=== PATIENT | female | born 1960 ===

== ENCOUNTER 2017-02-21 11:20 | Outpatient (CLI) | payer BC | END 2017-02-21 11:21 | disposition home or self-care (01) | LOC: LAB.WCP 11:20 | PROVIDERS: ATTEND Family Medicine | DX: N39.0 Urinary tract infection, site not specified (principal) | CPT/HCPCS: 87077; 87086 ==

== ENCOUNTER 2019-05-07 08:00 | Outpatient (CLI) | payer OTHER, BC ==
--- NOTE | 2019-05-08 11:58 | XRAY Report ---
Reason: RIGHT THUMB PAIN Procedure Date: 05/07/2019 Accession Number: [id number] / [id number] Procedure: WCP - Finger(s) RT CPT Code: FULL RESULT: EXAM: RIGHT FIRST DIGIT RADIOGRAPHY EXAM DATE: 05/07/2019 02:44 PM. CLINICAL HISTORY: Right first digit pain. Crush injury 2 weeks ago. COMPARISON: None. TECHNIQUE: 3 views. FINDINGS: Bones: Only well seen on the oblique view are subtle nondisplaced lucencies involving the dorsal lateral distal first proximal phalanx as well as adjacent osteophyte complex of the base of first distal phalanx which may represent nondisplaced or partially healed fractures. Joints: Moderate joint space loss and articular osteophytes present about the first IP joint. No dislocation. Soft Tissues: Normal. No soft tissue swelling. IMPRESSION: 1. Possible subtle nondisplaced intra-articular fractures of the dorsal lateral distal first proximal phalanx and adjacent dorsal osteophyte complex of the base of first distal phalanx. 2. No dislocation. [facility]
== END 2019-05-07 23:59 | disposition home or self-care (01) ==
LOC: DI.WCP 08:00 → EDSTATUS 13:22 → DI.WCP 23:59
PROVIDERS: ATTEND Physician Assistant Medical
DX: M79.644 Pain in right finger(s) (principal)
CPT/HCPCS: 73140

== ENCOUNTER 2019-09-18 11:00 | Outpatient (CLI) | payer BC ==
[2019-09-18 18:38] LABS: BASOPHILS % (AUTO) 0.5 %; EOSINOPHILS # (AUTO) 0.1 10^3/uL (0.0-0.7); EOSINOPHILS % (AUTO) 1.8 %; LYMPHOCYTES # (AUTO) 1.7 10^3/uL (1.5-3.5); LYMPHOCYTES % (AUTO) 27.7 %; MEAN CORPUSCULAR HEMOGLOBIN 27.4 pg (27.0-31.0); MEAN CORPUSCULAR HGB CONC 31.9 g/dL (32.0-36.0); MEAN CORPUSCULAR VOLUME 86.1 fL (81.0-99.0); MEAN PLATELET VOLUME 10.6 fL (7.9-10.8); MONOCYTES # (AUTO) 0.4 10^3/uL (0.0-1.0); MONOCYTES % (AUTO) 6.4 %; NEUTROPHILS # (AUTO) 3.8 10^3/uL (1.5-6.6); NEUTROPHILS % (AUTO) 63.3 %; PLT - PLATELET COUNT 256 10^3/uL (130-450); RED BLOOD COUNT 4.74 10^6/uL (4.20-5.40); RED CELL DISTRIBUTION WIDTH 14.1 % (12.0-15.0); WHITE BLOOD COUNT 6.1 x10^3/uL (4.8-10.8)
[2019-09-18 19:08] LABS: ALBUMIN 4.6 g/dL (3.2-5.5); ALBUMIN/GLOBULIN RATIO 1.6 (1.0-2.2); ALKALINE PHOSPHATASE 61 IU/L (42-121); ALT ALANINE AMINOTRANSFERASE 21 IU/L (10-60); AST ASPARTATE AMINOTRANSFERASE 28 IU/L (10-42); BILIRUBIN,TOTAL 1.1 mg/dL (0.2-1.0); BUN - BLOOD UREA NITROGEN 17 mg/dL (6-20); CALCIUM 9.4 mg/dL (8.5-10.3); CARBON DIOXIDE - CO2 26 mmol/L (21-32); CHLORIDE 105 mmol/L (101-111); CHOL/HDL RATIO 2.3 (<4.4); CHOLESTEROL 187 mg/dL; CREATININE 0.8 mg/dL (0.4-1.0); GLUCOSE 83 mg/dL (70-100); HDL CHOLESTEROL 81 mg/dL; LDL CHOLESTEROL,CALCULATED 97 mg/dL; LDL/HDL RATIO 1.2 (<4.4); SODIUM 138 mmol/L (135-145); TOTAL PROTEIN 7.5 g/dL (6.7-8.2); VLDL CHOLESTEROL 9 mg/dL
== END 2019-09-18 23:59 | disposition home or self-care (01) ==
LOC: LAB.WCP 11:00
PROVIDERS: ATTEND Physician Assistant Medical
DX: Z00.00 Encounter for general adult medical examination without abnormal findings (principal)
CPT/HCPCS: 36415; 80053; 80061; 83721; 84443; 85025

== ENCOUNTER 2023-02-08 08:00 | Outpatient (CLI) | payer BC | END 2023-02-08 23:58 | disposition home or self-care (01) | LOC: LAB.N 08:00 | PROVIDERS: ATTEND Physician Assistant | DX: N75.1 Abscess of Bartholin's gland (principal) | CPT/HCPCS: 87070; 87181 ==